=== PATIENT | male | born 1965 | race Caucasian/White ===

== ENCOUNTER 2021-08-15 20:09 | Observation (INO) | payer OTHER, SELFPAY ==
[2021-08-15 20:10] VITALS: BP 147/99; PULSE 91; RESP 14; TEMP 36; O2SAT 93; BMI 38.5
--- NOTE | 2021-08-15 21:50 | RAD_ITS ---
EXAM: XR RIGHT TIBIA AND FIBULA, 2 VIEWS CLINICAL INDICATION: pain TECHNIQUE: Frontal and lateral views of the right tibia and fibula. This report was created using [employer] report generation technology. COMPARISON: None. FINDINGS: See Impression. RAD/Tibia & Fibula 2 Views IMPRESSION: 1. Acute oblique fracture involving the distal shaft of the tibia with lateral displacement of the distal component by 1 shaft width. Mildly comminuted acute fracture involving the distal shaft of the fibula at the metadiaphyseal level. 2. Adjacent soft tissue swelling. 3. No other acute or healing fracture or malalignment. Electronically Signed: Orlando Pathak MD at 22:53 EST Tel , Service support ,
--- NOTE | 2021-08-15 21:50 | RAD_ITS ---
EXAM: XR RIGHT ANKLE COMPLETE, 3 OR MORE VIEWS CLINICAL INDICATION: pain TECHNIQUE: Frontal, lateral and oblique views of the right ankle. This report was created using [employer] report [employer]ARD[employer] technology. COMPARISON: None. FINDINGS: BONES/JOINTS: Slight widening of the medial ankle mortise compared to the lateral ankle mortise. Correlate for any clinical evidence of extensive associated ligamentous instability. Other than fractures of the distal fibula shaft and distal tibia shaft, there are no other fractures involving the ankle or visualized foot. Prominent os trigonum. Preservation of the joint space. No sclerotic or destructive changes observed. SOFT TISSUES: Soft tissue swelling along the lateral distal extremity/ankle and anterior tibiotalar joint. No radiopaque foreign body. RAD/Ankle 2 Views IMPRESSION: 1. Slight widening of the medial ankle mortise compared to the lateral ankle mortise. Correlate for any clinical evidence of extensive associated ligamentous instability. 2. Other than fractures of the distal fibula shaft and distal tibia shaft, there are no other fractures involving the ankle or visualized foot. Electronically Signed: Orlando Pathak MD at 22:37 EST Tel , Service support ,
--- NOTE | 2021-08-15 23:33 | EKG12_ITS ---
Test Reason : DYSRHYTHMIA Blood Pressure : / mmHG Vent. Rate : 090 BPM Atrial Rate : 090 BPM P-R Int : 120 ms QRS Dur : 082 ms QT Int : 372 ms P-R-T Axes : 075 053 057 degrees QTc Int : 455 ms Normal sinus rhythm Nonspecific T wave abnormality Abnormal ECG Confirmed by JENNIFER ROGEL, MAURICE ([id number]), editor publications LOTTIE MANCIA ([id number]) on 08/21/2021 12:06:21 PM Referred By: JENA Confirmed By:MAURICE RODRIGUEZ MD
--- NOTE | 2021-08-15 23:39 | CT_ITS ---
EXAM: CT RIGHT LOWER EXTREMITY WITHOUT INTRAVENOUS CONTRAST CLINICAL INDICATION: fracture TECHNIQUE: Helically acquired images were obtained of the right lower extremity without intravenous contrast. 2-D reformats were performed by the technologist. CTDIvol = ( 15.35 ) mGy, DLP = ( 353.76 ) mGycm This CT exam was performed using one or more of the following dose reduction techniques: automated exposure control, adjustment of the mA and/or kV according to patient size, and/or use of iterative reconstruction technique. This report was created using [employer] report [employer] technology. COMPARISON: 08/16/2021 left ankle radiography. FINDINGS: BONES/JOINTS: Known acute comminuted fracture involving the distal fibula centered at the metadiaphysis level. Known acute involving the distal shaft of the tibia with mild lateral displacement by one shaft width of the distal component. Subtle nondisplaced fracture involving the lateral corner of the distal tibia adjacent to the fibula fracture. At least moderate tibiotalar joint effusion. Ankle mortise is intact. Ankle tendons are intact. No sclerotic or destructive changes. SOFT TISSUES: Diffuse subcutaneous edema about the ankle and foot. No organized collections. CT/Extremity Lower without Contra IMPRESSION: 1. Acute fractures of the distal tibia and fibula. 2. Moderate tibiotalar joint effusion. Electronically Signed: Orlando Pathak MD at 1:33 EST Tel , Service support ,
[2021-08-15 23:41] VITALS: BP 140/90; PULSE 91; RESP 18; TEMP 37.2; O2SAT 96
[2021-08-16] VITALS (12 sets, daily range): BP systolic 120–148; BP diastolic 71–101; PULSE 52–106; RESP 16–18; TEMP 36.2–37.6; O2SAT 94–100; BMI 17.9
--- NOTE | 2021-08-16 00:03 | RAD_ITS ---
EXAM: XR CHEST, 1 VIEW CLINICAL INDICATION: preop clearance TECHNIQUE: Frontal view of the chest. This report was created using [employer] report generation technology. COMPARISON: None. FINDINGS: LUNGS AND PLEURAL SPACES: Suggestive diffuse emphysema. Small calcific densities project over the left upper lobe. This may represent old granulosus disease. No consolidation or edema. No pneumothorax. No effusion. HEART: Unremarkable. Cardiac silhouette not enlarged. MEDIASTINUM: Central airways and mediastinal contour are unremarkable. BONES/JOINTS: Degenerative changes of the spine. SOFT TISSUES: Unremarkable. RAD/Chest 1 View (Portable) IMPRESSION: No acute findings in the chest. Electronically Signed: Orlando Pathak MD at 1:12 EST Tel , Service support ,
[2021-08-16] MEDS: Ondansetron 4 MG/2 ML Vial IV (00:06)
[2021-08-16] MEDS: Morphine 4 MG/ML Syringe IV (00:07)
[2021-08-16 00:20] LABS: Absolute Lymphocyte Count 1.53 X10^3/uL (0.83-4.51); Absolute Neutrophil Count 9.6 X10^3/uL (2.0-7.7); Basophil# 0.08 X10^3/uL; Basophil% 0.7 % (0-1); Eosinophil# 0.01 X10^3/uL; Eosinophils% 0.1 % (0-5); Hematocrit 37.8 % (40-54); Hemoglobin 13.3 g/dL (13.0-16.5); Lymphocyte # 1.53 X10^3/ul (0.83-4.51); Lymphocyte % 13.1 % (19-41); Mean Corp Hgb Conc 35.2 g/dL (32-36); Mean Corpuscular Hgb 34.3 pg (27.0-32.0); Mean Corpuscular Volume 97.4 fL (80-94); Mean Platelet Vol. 9.4 fl (6.2-12.0); Monocyte# 0.42 X10^3/uL; Monocyte% 3.6 % (0-10); NRBC Flagged by Analyzer 0 % (0-5); Neutrophil # 9.59 X10^3/uL (2.7-7.7); Neutrophil % 81.9 % (47-70); Platelet Count 258 K/mm3 (150-450); RBC Distribution Width CV 12.6 % (11.6-14.6); RBC Distribution Width SD 45.1 fl (35.1-43.9); Red Blood Count 3.88 M/mm3 (4.6-6.2); White Blood Count 11.7 K/mm3 (4.4-11.0)
--- NOTE | 2021-08-16 00:38 | ED.VIS.LOWEX ---
HPI History of Present Illness Chief Complaint: Lower Extremity Injury Informant: patient Narrative Narrative: Patient said that he missed stepped on the steps of his porch. He was a little wet. He slipped. He states he just fell and landed right on his right lower extremity. He did not hurt anything else. He cannot bear weight on it. He denies pain at the hips back neck. He never hit his head. Staying still makes it quite a bit better. Motion makes it worse. He states it does not hurt that bad if he stays still. Patient denies medical conditions No medications No allergies No recent surgeries Lives independently, is a regular smoker. PFS PFS Medical History no medical history Home Medications NK 08/15/21 [History Last Taken Unknown] Allergy/AdvReac Type Severity Reaction Status Date / Time No Known Allergies Allergy Verified 08/15/21 20:10 Social History Smoking Status: Current every day smoker tobacco type: cigarettes ROS ROS ED Constitutional Constitutional ED: Denies fever(s) Eyes Eyes: Denies blurry vision ENT ENT ED: Denies rhinorrhea Cardiovascular Cardiovascular: Denies chest pain or palpitations Respiratory/Chest Respiratory/Chest: Denies cough or dyspnea Gastrointestinal Gastrointestinal: Denies abdominal pain, nausea or vomiting Genitourinary Genitourinary ED: Denies dysuria Musculoskeletal Musculoskeletal: Reports other Details: See history of present illness. ; Denies back pain or neck pain Integumentary Denies Abrasions or rash Neurologic Neurologic: Denies paresthesias or weakness Endocrine Endocrinology: Denies polydipsia or polyuria Hematologic/Lymphatic Hematologic/Lymphatic: Denies easy bleeding or easy bruising Allergic/Immunologic Allergic/Immunologic ED: Denies urticaria EXAM Physical Exam Const Vital Signs: 08/15/21 20:10 Temperature 96.8 F L Temperature Source Temporal Pulse Rate 91 Respiratory Rate 14 Blood Pressure 147/99 H Blood Pressure Mean 115 Pulse Ox 93 Oxygen Delivery Method Room Air Patient looks like he may have a fracture. But he states he is very comfortable just lying in bed as long as he does not move it. He did not want anything for pain at first. Positive well nourished and well developed General Appearance ED: well developed and NAD HEENT normocephalic and atraumatic; Negative for tenderness Neck full ROM Thyroid: Negative for tender Chest Wall inspection of chest normal and palpation of chest normal Resp normal respiratory effort and clear to auscultation bilaterally Auscultation: Negative for rales, rhonchi or wheezes Cardio regular rate and regular rhythm GI non-tender and non-distended Palpation: soft Back/Spine no CVA tenderness Cervical Spine: Negative for cervical spine tenderness Thoracic Spine / Upper Back: Negative for thoracic spinal tenderness Lumbar Spine / Lower Back: Negative for lumbar spinal tenderness Extremity Extremity Narrative: Patient does have some swelling in the distal third of the tib-fib area on the right. Pulses are intact. He wiggles toes well. Sensation is intact. There does appear to be slight rotation externally. Neuro oriented x3 Sensorium / Orientation: alert; Negative for confused, lethargic or stuporous Psych mental status grossly normal Skin Skin Narrative: No laceration or puncture. Lesions: no lesions Rashes: no rashes MDM MDM MDM Narrative Medical decision making narrative: X-ray of his tib-fib and ankle show oblique fracture of the distal shaft of the tibia with fracture and fragment involving the fibula. No obvious fracture of the ankle. I discussed the case with Dr. Ortiz on for orthopedics. Plan will be admit to the hospital. He requested CT scan of the ankle. This is pending. I also have initiated work-up to allow clearance for surgery. EKG shows no acute process. CBC is normal. We are pending electrolytes at this time. Procedure: Splint right lower extremity: I discussed risk benefits and options of the patient. We placed him in a 5 inch posterior short leg splint and then a 4 inch sugar tong around his right lower extremity. He had good motion of the toes sensation and capillary refill when rechecked afterwards. This did help his pain. I explained that he will be admitted, he is n.p.o. and this should be fixed hopefully tomorrow Lab Data Attestation: I reviewed the patient's lab results. Labs: Laboratory Results - last 24 hr 08/16/21 00:10 WBC 11.7 H RBC 3.88 L Hgb 13.3 Hct 37.8 L MCV 97.4 H MCH 34.3 H MCHC 35.2 RDW Std Deviation 45.1 H RDW Coeff of [place] 12.6 Plt Count 258 MPV 9.4 Immature Gran % (Auto) 0.600 Neut % (Auto) 81.9 H Lymph % (Auto) 13.1 L [place] % (Auto) 3.6 Eos % (Auto) 0.1 Baso % (Auto) 0.7 Absolute Neuts (auto) 9.6 H Absolute Lymphs (auto) 1.53 Nucleated RBC % 0 Radiography Diagnostic Testing: Clinical Impression(s) from Imaging Studies Ankle X-Ray 08/15/21 21:50 IMPRESSION: 1. Slight widening of the medial ankle mortise compared to the lateral ankle mortise. Correlate for any clinical evidence of extensive associated ligamentous instability. 2. Other than fractures of the distal fibula shaft and distal tibia shaft, there are no other fractures involving the ankle or visualized foot. Electronically Signed: Orlando Pathak MD at 22:37 EST Tel , Service support , Tibia/Fibula X-Ray 08/15/21 21:50 IMPRESSION: 1. Acute oblique fracture involving the distal shaft of the tibia with lateral displacement of the distal component by 1 shaft width. Mildly comminuted acute fracture involving the distal shaft of the fibula at the metadiaphyseal level. 2. Adjacent soft tissue swelling. 3. No other acute or healing fracture or malalignment. Electronically Signed: Orlando Pathak MD at 22:53 EST Tel , Service support , EKG Initial EKG: Comments: EKG done as part of medical clearance read by me shows a normal sinus rhythm with a rate of 90. No ectopy. Mild nonspecific ST and T wave changes diffusely but no acute ST elevation or depression consistent with infarct or ischemia. AL interval, QRS duration and QTc are normal. Discharge Plan Dx/Rx/DC Orders Clinical Impression: Accidental fall on or from other stairs or steps, Closed fracture of right fibula and tibia Disposition Disposition: Acute Care [facility]
[2021-08-16 00:41] LABS: Anion Gap 8 (5-15); BUN 13 mg/dL (7-18); BUN/Creat Ratio 12.6 RATIO (10-20); Calcium,Total 8.5 mg/dL (8.5-10.1); Chloride 104 mmol/L (98-107); Creatinine, Serum 1.03 mg/dL (0.70-1.30); EST Glomerular Filtration Rate 79 mL/min (>60); Est Glom Filt Rate - Afr Amer 96 mL/min (>60); Estimated Creatinine Clearance 76.55 ml/min; Glucose 127 mg/dL (74-106); Potassium 3.9 mmol/L (3.5-5.1); Sodium Level 138 mmol/L (136-145)
[2021-08-16] MEDS: Lactated Ringers 1,000 ML 125 ML IV ×4 (02:27→18:08)
[2021-08-16] MEDS: 0.9% Saline Lock 10 ML Syringe IV (02:27)
[2021-08-16] MEDS: oxyCODONE 5 MG Tablet 10 MG PO ×2 (02:35→06:53)
--- NOTE | 2021-08-16 04:15 | PCS.PANDOC ---
PANDEMIC DOCUMENTATION INITIATED: Date: 08/16/21 Time:0100
--- NOTE | 2021-08-16 07:27 | PCM.HP.STD ---
HPI - General General Date of Admission: 08/16/21 HPI Narrative XIN DIA, is a 56 M who presented to [facility] emergency department via squad last evening 08/15/21. Patient fell down approximately 7 stairs while he was barbecuing in his backyard going down the steps off the deck. He believes the steps were wet causing him to slip. He says he tumbled down the stairs and at some point injured his right leg. He noted a gross deformity and inability to ambulate. EMS was called. X-rays were then obtained in the emergency department demonstrated a distal third tib-fib fracture with questionable involvement of the ankle. I was contacted from the emergency department and recommended a CT scan of the right ankle which was obtained. I then subsequently admitted the patient to my service. He was placed in a short leg splint by the emergency room physician. He states this morning that his pain is well controlled if he just does not move, states it slightly increased from last night, but appears comfortable. Denies other associated injury. Reports a mild headache but no dizziness. Denies fevers, chills, nausea or vomiting, chest pain or shortness of breath. Denies antecedent pain in the right lower leg or ankle. Denies any medical problems and does not take medication on a daily basis. He does admit he has not seen a family physician in decades. He states last time he saw was for a broken clavicle which was treated nonoperatively. [facility] Medical History no medical history Home Medications NK 08/15/21 [History Last Taken Unknown] Allergy/AdvReac Type Severity Reaction Status Date / Time No Known Allergies Allergy Verified 08/15/21 20:10 Social History Smoking Status: Current every day smoker tobacco type: cigarettes ROS ROS Narrative 12 point review of systems obtained, negative unless otherwise noted in HPI. Vital Signs Vital Signs Vital Signs: 08/15/21 20:10 08/15/21 23:41 08/16/21 01:49 Temperature 96.8 F L 98.9 F 98.9 F Temperature Source Temporal Temporal Oral Pulse Rate 91 91 95 Respiratory Rate 14 18 18 Respiratory Effort Respiratory Depth Respiratory Pattern Blood Pressure 147/99 H 140/90 H 144/94 H Blood Pressure Mean 115 106 110 Blood Pressure Source Monitor Blood Pressure Position Supine Blood Pressure Location Right Arm Pulse Ox 93 96 100 Oxygen Delivery Method Room Air Room Air Room Air 08/16/21 02:14 08/16/21 06:18 Temperature 98.4 F Temperature Source Oral Pulse Rate 85 Respiratory Rate 18 Respiratory Effort Normal Non-Labored Respiratory Depth Normal Respiratory Pattern Normal Blood Pressure 148/101 H Blood Pressure Mean 116 Blood Pressure Source Monitor Blood Pressure Position Supine Blood Pressure Location Right Arm Pulse Ox 98 Oxygen Delivery Method Room Air Room Air Weight Weight: 118 lb 2.684 oz Body Mass Index (BMI) 17.9 Physical Exam Narrative General -A&Ox3, NAD, appears stated age. Vital signs stable, afebrile. Respiratory -normal work of breathing, no intercostal retractions. CV -pulses regular, brisk capillary refill ?4 limbs. Abdomen-soft, nontender, nondistended. No guarding, rigidity, rebound tenderness. Musculoskeletal/neurologic -full range of motion nontender throughout bilateral upper extremities, left lower extremity with full sensation and strength in all dermatomes and myotomes. No midline cervical tenderness. Right lower extremity-no pain with logroll of the right hip. Nontender about the thigh and knee. There is a short leg splint in place. Splint is clean dry and intact. The foot appears externally rotated slightly with reference to the patella. Patient does wiggle his toes on command. He has no pain with passive stretch of the toes. The anterior compartment appears soft through the splint. Sensation intact to light touch about the exposed toes. Brisk capillary refill in the toes. Results Lab / Micro Data Result Diagrams: 08/16/21 00:10 08/16/21 00:10 Labs: Laboratory Results - last 24 hr 08/16/21 00:10: WBC 11.7 H, RBC 3.88 L, Hgb 13.3, Hct 37.8 L, MCV 97.4 H, MCH 34.3 H, MCHC 35.2, RDW Std Deviation 45.1 H, RDW Coeff of [place] 12.6, Plt Count 258, MPV 9.4, Immature Gran % (Auto) 0.600, Neut % (Auto) 81.9 H, Lymph % (Auto) 13.1 L, [place] % (Auto) 3.6, Eos % (Auto) 0.1, Baso % (Auto) 0.7, Absolute Neuts (auto) 9.6 H, Absolute Lymphs (auto) 1.53, Nucleated RBC % 0 08/16/21 00:10: Sodium 138, Potassium 3.9, Chloride 104, Carbon Dioxide 26.0, Anion Gap 8, BUN 13, Creatinine 1.03, Estim Creat Clear Calc 76.55, Est GFR (MDRD) Af Amer 96, Est GFR (MDRD) Non-Af 79, BUN/Creatinine Ratio 12.6, Glucose 127 H, Calcium 8.5 Micro: Microbiology 08/15/21 23:50 Nasal Secretion SARS-CoV-2 Antigen (Rapid) - Final Radiology Impression Ankle X-Ray 08/15/21 21:50 IMPRESSION: 1. Slight widening of the medial ankle mortise compared to the lateral ankle mortise. Correlate for any clinical evidence of extensive associated ligamentous instability. 2. Other than fractures of the distal fibula shaft and distal tibia shaft, there are no other fractures involving the ankle or visualized foot. Electronically Signed: Orlando Pathak MD at 22:37 EST Tel , Service support , Tibia/Fibula X-Ray 08/15/21 21:50 IMPRESSION: 1. Acute oblique fracture involving the distal shaft of the tibia with lateral displacement of the distal component by 1 shaft width. Mildly comminuted acute fracture involving the distal shaft of the fibula at the metadiaphyseal level. 2. Adjacent soft tissue swelling. 3. No other acute or healing fracture or malalignment. Electronically Signed: Orlando Pathak MD at 22:53 EST Tel , Service support , Lower Extremity CT 08/15/21 23:39 IMPRESSION: 1. Acute fractures of the distal tibia and fibula. 2. Moderate tibiotalar joint effusion. Electronically Signed: Orlando Pathak MD at 1:33 EST Tel , Service support , Chest X-Ray 08/16/21 00:03 IMPRESSION: No acute findings in the chest. Electronically Signed: Orlando Pathak MD at 1:12 EST Tel , Service support , Assessment & Plan Assessment/Plan (1) Closed fracture of right fibula and tibia: QUALIFIERS: Encounter type: initial encounter Qualified Code(s): S82.201A - Unspecified fracture of shaft of right tibia, initial encounter for closed fracture; S82.401A - Unspecified fracture of shaft of right fibula, initial encounter for closed fracture PLAN: see below (2) Bimalleolar fracture of right ankle: QUALIFIERS: Encounter type: initial encounter Fracture type: closed Qualified Code(s): S82.841A - Displaced bimalleolar fracture of right lower leg, initial encounter for closed fracture PLAN: Patient seen and examined. He appears to have a closed, neurovascular intact, isolated injury to his right lower leg. There is a spiral fracture about the distal tibia. The fracture spirals down to the tibial plafond where there is a nondisplaced posterior malleolus fracture. There is also a distal fibula fracture just above the syndesmosis. There appears to be some medial clear space widening on his ankle. This is suggestive of an unstable ankle injury as well. Thus, I recommended surgical intervention in the form of right tibia intramedullary nailing, open reduction internal fixation right ankle. I explained the injury and procedure to the patient at length. The risks, benefits, alternatives to the procedure reviewed with the patient at length and he agreed to proceed. Risks include but are not limited to bleeding, infection, loss of life or limb, need for additional surgery, persistent pain, prolonged nonweightbearing, nonunion or malunion, wound complications, neurovascular injury, DVT or PE. Patient expressed understanding of these risks and wished to proceed with surgery. -N.p.o., maintenance IV fluids, 2 g Ancef on-call the OR -Type and screen -PT/OT following surgery -Plan for surgery later on this morning.
[2021-08-16 08:51] LABS: Absolute Lymphocyte Count 2.88 X10^3/uL (0.83-4.51); Absolute Neutrophil Count 7.1 X10^3/uL (2.0-7.7); Basophil# 0.05 X10^3/uL; Basophil% 0.5 % (0-1); Eosinophil# 0.05 X10^3/uL; Eosinophils% 0.5 % (0-5); Hematocrit 35.7 % (40-54); Hemoglobin 11.9 g/dL (13.0-16.5); Lymphocyte # 2.88 X10^3/ul (0.83-4.51); Lymphocyte % 25.9 % (19-41); Mean Corp Hgb Conc 33.3 g/dL (32-36); Mean Corpuscular Hgb 33.1 pg (27.0-32.0); Mean Corpuscular Volume 99.4 fL (80-94); Mean Platelet Vol. 9.5 fl (6.2-12.0); Monocyte# 0.99 X10^3/uL; Monocyte% 8.9 % (0-10); NRBC Flagged by Analyzer 0 % (0-5); Neutrophil # 7.08 X10^3/uL (2.7-7.7); Neutrophil % 63.7 % (47-70); Platelet Count 229 K/mm3 (150-450); RBC Distribution Width CV 12.7 % (11.6-14.6); RBC Distribution Width SD 46.1 fl (35.1-43.9); Red Blood Count 3.59 M/mm3 (4.6-6.2); White Blood Count 11.1 K/mm3 (4.4-11.0)
--- NOTE | 2021-08-16 09:48 | NURSING ---
pt to surgery
--- NOTE | 2021-08-16 10:16 | EKG12_ITS ---
Test Reason : POST OP Blood Pressure : / mmHG Vent. Rate : 087 BPM Atrial Rate : 087 BPM P-R Int : 118 ms QRS Dur : 084 ms QT Int : 382 ms P-R-T Axes : 066 001 049 degrees QTc Int : 459 ms Normal sinus rhythm with sinus arrhythmia Low voltage QRS (Limb Leads) Confirmed by FAUZIA ROGEL, FERNANDO ([id number]), telegraph editor JEANNETTE HOLLINS ([id number]) on 08/29/2021 8:28:27 AM Referred By: SHEEBA Confirmed By:FERNANDO CAGE MD
--- NOTE | 2021-08-16 10:30 | OP.PCM_ITS ---
Report of Operation Date of Procedure: 08/16/21 Description of Surgical Findings:: Preoperative diagnosis: 1. Right closed distal third tibial shaft fracture 2. Right closed ankle bimalleolar fracture Postoperative diagnosis: 1. Right closed distal third tibial shaft fracture 2. Right closed ankle bimalleolar fracture Procedure: 1. Suprapatellar intramedullary nail fixation of right tibial shaft fracture 2. Open reduction internal fixation right lateral malleolus and posterior malleolus fracture right ankle Surgeon: Yonathan Ortiz DO [employer] Specialist: Juliane Andersen SA Anesthesia: General LMA Anesthesiologist: Dr. De La Torre Complications: None Drains: None Estimated blood loss: 150 cc Urinary output: None IV fluids: Per anesthesia record Specimens: None Surgical implants: Myron T2 alpha tibial system tibial nail 10 mm x 345 mm Myron intramedullary nail 5 mm interlocking screws x4-length 35 mm, 45 mm, 65 mm, 50 mm Myron 4.0 mm partially-threaded cannulated cancellous screw x2 Myron VariAx lateral fibula locking plate 7 hole Indications: This is a 56 M who presented to [facility] emergency department via squad last evening 08/15/21. Patient fell down approximately 7 stairs while he was barbecuing in his backyard going down the steps off the deck. He believes the steps were wet causing him to slip. He says he tumbled down the stairs and at some point injured his right leg. He noted a gross deformity and inability to ambulate. EMS was called. X-rays were then obtained in the emergency department demonstrated a distal third tib-fib fracture with questionable involvement of the ankle. I was contacted from the emergency department and recommended a CT scan of the right ankle which was obtained. I then subsequently admitted the patient to my service. He was placed in a short leg splint by the emergency room physician. He was neurovascularly intact. Due to the distal third nature, a CT scan was performed to rule out occult posterior malleolus fracture. CT of the ankle was demonstrated a nondisplaced posterior malleolus fracture. There also appeared to be some medial clear space widening of the ankle. Given the nature of the injury, I recommended surgical fixation in the form of suprapatellar intramedullary nailing of the right tibia and open reduction internal fixation of the right lateral and posterior malleoli. I reviewed the procedure with the patient. We discussed the risks, benefits, alternatives to procedure. Risks include but were not limited to bleeding, infection, loss of life or limb, risk of anesthesia, persistent pain, compartment syndrome, malunion, nonunion, need for additional surgery, persistent limp or disability after surgery, failure mechanical orthopedic device. Informed consent was obtained he agreed to proceed. Description of procedure: Description of procedure Prior to his procedure, he was brought to the preoperative holding area. Identified the patient by his name, medical record number, and date of . The operative extremity was marked. Informed consent was again confirmed with the patient and all questions answered were to the patient satisfaction. Patient was also seen by the anesthesia staff prior to the procedure. At time of his procedure he was brought to the operative suite and positioned supine a standard operating table. General esthesia was induced in order to mask airway placed. After adequate anesthesia, we prepared the right lower extremity for surgery. We placed a bump under the patient's right hip. Bath blankets were used to elevate the right lower extremity in a ramped type fashion and secured with tape. The splint was then removed, hair was clipped and a trauma scrub performed. We then prepped the right lower extremity in a normal, sterile orthopedic fashion with ChloraPrep. We then performed a timeout with all parties in attendance in agreement with the side, site, operation to be performed. 2 g of Ancef was administered prior to incision by the anesthesia staff. No concerns are voiced and we elected to proceed at this time. A well-padded pneumatic tourniquet was applied to the patient's right upper thigh prior to prepping and draping. The right lower extremity was exsanguinated Esmarch bandage and inflated to 280 mmHg. The tourniquet was deflated prior to intramedullary nailing and reaming. I first placed the 2 anterior to posterior partially-threaded cannulated 4.0 millimeters screws to capture the posterior malleolus. I placed these medial and lateral respectively to my planned intramedullary nail. Stab incisions were made after marking the skin. K wires were then passed bicortically anterior to posterior. Depth gauge was used to measure the length of the screw. I then placed both screws to appropriate depth. I then turned my attention to the lateral malleolus. A standard direct lateral approach was made over the line the distal fibular shaft and lateral malleolus. Skin was sharply incised with 15 blade scalpel. The superficial peroneal nerve was not identified throughout the dissection. There was significant fracture hematoma and periosteal stripping about the fracture. There was a large butterfly fragment of the anterior cortex of the fibula noted. I had my food service assistant pulled traction and we were able to achieve appropriate length of the fibula. I placed a reduction clamp around the fibula and confirmed on fluoroscopy appropriate fibular length. This significantly reduced the tibia as well. I then selected a lateral locking plate and bridge fashion as was unable to clamp the butterfly fragment and elected to use the plate and bridge mode. I secured the plate to bone with cortical screws proximal and distal to the fracture site. Before placing final locking screws in the distal cluster, I turned my attention to the tibia. I was able to place a percutaneous clamp arou nd the fracture site anteriorly and was able to palpate the distal tibia fracture site through the deep posterior compartment where I passed the other namita of the large pointed reduction clamp. I achieved a near perfect reduction of the fracture of the tibia. I then turned my attention to the knee to prepare for intramedullary fixation. A suprapatellar approach was utilized. Approximately 1 fingerbreadth above the superior pole the patella in the midportion of the quadriceps tendon and approximately 2 cm incision was made sharply through skin, subcutaneous tissue and through the quad tendon into the knee joint. Digital blunt dissection was used to ensure we had gained access to the knee joint. Blunt tipped guide was used then to traverse the patellofemoral joint and gain access to our entry point. A starting pin was placed through the center portion of the guide. We chose our starting point just medial to the lateral tibial eminence on a perfect AP and just anterior to the articular surface on the lateral projection of the knee. The pin was driven bicortically and secured. We then remove the center portion of the soft tissue guide. The opening reamer was used to gain access to the intramedullary canal. Opening reamer was then removed as well as starting pin. A ball-tipped guidewire was then inserted through the soft tissue guide with a gentle bend at the end for manipulation. We passed the ball-tipped guidewire through the intramedullary canal, ensuring maintained reduction. We then carefully rotated the wire to achieve center center position at the ankle on both AP and lateral projections. A depth gauge was utilized to measure the length of the nail, selecting a 345 mm length nail. After we were content with position of our ball-tipped guidewire, we then sequentially reamed using flexible reamers to a final diameter of 11 mm. Reamers were removed. Intramedullary nail was opened and prepared on the back table. Nail was placed over top of the ball-tipped guidewire and impacted to an appropriate depth. Reduction was near-anatomic after impaction, slight distraction was noted. Ball-tipped guidewire was removed. We then placed our interlocking screws distally first to allow for backslapping. I then placed 2 medial to lateral distal interlocking screws using perfect [place] technique. Skin was first marked, incised with 15 blade scalpel, and spread down to bone utilizing hemostat. These were drilled bicortically, measured with a depth gauge, and tightened using fluoroscopic assistance. We then assembled the back slap attachment to the impactor of the nail. Backslapping was performed under fluoroscopic imaging. There was significant compression across the fracture site, achieving a more anatomic alignment. We then placed 2 interlocking screws in the proximal portion of the nail utilizing the targeting guide. Skin was sharply incised with 15 blade scalpel, spread with hemostat. We drilled bicortically, measuring off the drill, and placed to appropriately sized proximal interlocking screws. Position and size were confirmed on fluoroscopy. Insertion handle and jig were then removed. Final fluoroscopic images revealed a well reduced fracture and appropriately positioned hardware. Stab incisions were closed with 2-0 Vicryl and cortez. The quadriceps tendon was closed watertight with [id number] #0 Vicryl suture with the dermis closed with interrupted buried 2-0 Vicryl and cortez for skin. The lateral malleolus approach was closed with 2-0 Vicryl buried in the dermis and cortez to reapproximate the skin. Incisions were cleansed and dressed with Xeroform, 4 x 4's, ABDs with abundant heel padding, and Tad wrap's. There were several fracture blisters around the fracture site which were deremoved and dressed with Xeroform. Compartments were soft and compressible after the procedure. A well-padded AO type splint was then placed around the patient's lower leg in maximal dorsiflexion. Patient tolerated the procedure well without complication. He was able to be safely extubated in the operative suite. He was transferred to the PACU in stable condition. Post Operative Plan: We will keep the patient overnight for observation and have him work with physical and occupational therapies. Weightbearing: Nonweightbearing right lower extremity. Range of motion as tolerated right knee Antibiotics: 2 g Ancef administered prior to incision, 1 g Ancef for 23 hours every 8 hours. DVT Prophylaxis: Xarelto to start tomorrow Damian: None Dressing: Maintain, keep clean dry and intact until follow-up. X-Rays: To be obtained in office in 2?3 weeks at follow-up. Pain Medication: Percocet prescription upon discharge. Follow-up: Follow-up with me in 2?3 weeks in the office for wound check, staple removal, and x-rays.
--- NOTE | 2021-08-16 10:33 | CASEMGMT ---
RN CM NOTE: Pt @ OR--unable to complete initial RN CM assessment. CM or SW to try and complete at a later time. Rachelle BSN RN CM
--- NOTE | 2021-08-16 10:50 | RAD_ITS ---
STUDY: X-RAY - RIGHT TIBIA AND FIBULA REASON FOR EXAM: Male, 56 years old. Known fracture TECHNIQUE: 13 Limited intraoperative view(s) of the tibia and fibula were obtained. COMPARISON: None. FINDINGS: 13 Limited intraoperative films were performed as the patient has undergone open reduction internal fixation of distal tibia and fibular fractures. An intramedullary shanell has been placed on the long axis of the tibia anchored with multiple threaded screws. Alignment at the fracture site is anatomic. A metallic side plate is placed along the distal fibula alignment active fracture site is also anatomic. Follow-up recommended to assure complete osseous union RAD/Tibia & Fibula 2 Views IMPRESSION: Status post open reduction internal fixation of known fractures in the distal tibia and fibula. Alignment is anatomic at both fracture sites after reduction. Follow-up recommended to assure complete osseous union Electronically Signed: Keenan Todd MD at 14:43 EST , Service support ,
[2021-08-16] MEDS: traMADol 50 MG Tablet PO (15:23)
--- NOTE | 2021-08-16 17:16 | CASEMGMT ---
SOCIAL WORK Referral Source: CM Reason for Consult: No PCP, no insurance Met with patient and patient's daughter in room. Introduced role and reason for referral. Patient still drowsy from surgery. Daughter states discharge plan is for patient to return home with daughter. Daughter states patient does have a walker available if needed. Patient reports to have insurance through work. Registration updated and will follow up. CM updated on discharge plan. Plan: Home with daughter Sahil Brennan, RESIDENTIAL PROGRAM MANAGER, DISPLAY TRIMMER
[2021-08-16] MEDS: Cefazolin 1 GM/50 ML BAG IV (18:08)
[2021-08-16] MEDS: Acetaminophen 500 MG Tablet 1000 MG PO (21:53)
[2021-08-16] MEDS: Ibuprofen 400 MG Tablet 800 MG PO (21:53)
[2021-08-17] MEDS: traMADol 50 MG Tablet PO ×4 (00:05→17:57)
[2021-08-17] MEDS: Cefazolin 1 GM/50 ML BAG IV (02:17)
[2021-08-17] MEDS: Lactated Ringers 1,000 ML 125 ML IV ×2 (02:20→10:49)
[2021-08-17 03:11] VITALS: BP 108/78; PULSE 97; RESP 18; TEMP 36.7; O2SAT 98
[2021-08-17] MEDS: Acetaminophen 500 MG Tablet 1000 MG PO ×3 (05:12→21:44)
[2021-08-17] MEDS: Ibuprofen 400 MG Tablet 800 MG PO ×2 (05:12→21:44)
[2021-08-17 06:49] VITALS: BP 117/74; PULSE 75; RESP 18; TEMP 36.8; O2SAT 97
[2021-08-17] MEDS: Rivaroxaban 10 MG Tablet PO (06:53)
[2021-08-17 08:40] VITALS: BP 105/71; PULSE 83; RESP 22; TEMP 36.5; O2SAT 98
[2021-08-17] MEDS: oxyCODONE 5 MG Tablet 10 MG PO ×2 (09:54→20:14)
--- NOTE | 2021-08-17 14:07 | PCM.PN.ORT ---
Subjective Subjective Pt S&E. Doing well. States pain well controlled. Denies F/C/N/V/SOB/CP. Up to chair w/ PT/OT. Denies numbness, tingling. Objective Data Objective Data Vital Signs: Vital Signs Temp Pulse Resp BP Pulse Ox 97.7 F L 83 22 H 105/71 98 08/17/21 08:40 08/17/21 08:40 08/17/21 08:40 08/17/21 08:40 08/17/21 08:40 Oxygen Delivery Method Room Air Weight: 118 lb 2.684 oz Body Mass Index (BMI) 17.9 Intake & Output: Intake and Output for Last 24 Hours 08/15/21 08/16/21 08/17/21 23:59 23:59 23:59 Intake Total 3377.92 / 3377.92 / Output Total 300 / 1150 1425 / 1425 Balance 3077.92 / 2227.92 604.17 / 604.17 Lab / Micro Data Result Diagrams: 08/16/21 08:25 08/16/21 00:10 Micro: Microbiology 08/15/21 23:50 Nasal Secretion SARS-CoV-2 Antigen (Rapid) - Final Radiography Diagnostic Testing: Radiology Impression Tibia/Fibula X-Ray 08/16/21 10:50 IMPRESSION: Status post open reduction internal fixation of known fractures in the distal tibia and fibula. Alignment is anatomic at both fracture sites after reduction. Follow-up recommended to assure complete osseous union Electronically Signed: Keenan Todd MD at 14:43 EST , Service support , Physical Exam Narrative Gen - A&Ox3, NAD RLE - Dressing/splint C/D/I. Wiggles toes on command. SILT in toes. BCR. Compartments soft. No pain w/ passive stretch of toes. Assessment & Plan Assessment/Plan (1) Closed fracture of right fibula and tibia: QUALIFIERS: Encounter type: initial encounter Qualified Code(s): S82.201A - Unspecified fracture of shaft of right tibia, initial encounter for closed fracture; S82.401A - Unspecified fracture of shaft of right fibula, initial encounter for closed fracture (2) Bimalleolar fracture of right ankle: QUALIFIERS: Encounter type: initial encounter Fracture type: closed Qualified Code(s): S82.841A - Displaced bimalleolar fracture of right lower leg, initial encounter for closed fracture PLAN: POD#1 s/p R Tibia IMN, ORIF R Ankle - Doing well. Pain controlled. - PT/OT - NWB RLE, ROMAT R knee - Case management consulted. - Finish 23 hrs iv ABx - Xarelto for DVT ppx - Stable for discharge pending progress with therapies. Awaiting follow-up from therapy for [facility] vs SNF recs.
[2021-08-17 14:08] VITALS: BP 118/72; PULSE 81; RESP 18; TEMP 36.2; O2SAT 97
[2021-08-17 20:15] VITALS: BP 142/94; PULSE 94; RESP 16; TEMP 36.9; O2SAT 97
[2021-08-18] MEDS: traMADol 50 MG Tablet PO ×3 (00:40→11:56)
[2021-08-18 02:10] VITALS: BP 116/90; PULSE 87; RESP 16; TEMP 36.6; O2SAT 96
[2021-08-18] MEDS: Acetaminophen 500 MG Tablet 1000 MG PO ×2 (05:07→13:36)
[2021-08-18] MEDS: Ibuprofen 400 MG Tablet 800 MG PO ×2 (05:08→13:36)
[2021-08-18] MEDS: Rivaroxaban 10 MG Tablet PO (05:08)
[2021-08-18 08:54] VITALS: BP 112/81; PULSE 71; RESP 18; TEMP 36.6; O2SAT 97
--- NOTE | 2021-08-18 10:47 | CASEMGMT ---
ALVERTO CLEMENT NOTE: Call received from ALVERTO Castillo. Pt is being discharged home today and pt will need crutches and possibly a walker. Per SW note family reports a walker is available for pt. Anna states pt is checking w/his parents to ensure they do have a walker. RN to give script for walker to pt, if walker is not available. Crutches to be obtained from ED. PT/OT notes have been reviewed. Pt has been educated on crutches and proper technique. ALVERTO CLEMENT also informed Anna, if family does not have a walker available and if pt needs walker before discharge, [facility] can deliver walker to the hospital today before pt goes home. Anna to inform pt, if HHC is desired, to f/u w/his PCP or Ortho MD, as HHC is not able to be arranged on Thursday. Rachelle CABRERA RN, CM
--- NOTE | 2021-08-18 11:29 | PCM.DC.SUM ---
Providers Date of Admission: 08/16/21 Primary Care Physician: No Primary Care Phys Reason For Visit: TIB FIB FRACTURE Diagnosis Discharge Diagnosis (1) Closed fracture of right fibula and tibia: Status: Acute Code(s): S82.201A - Unspecified fracture of shaft of right tibia, initial encounter for closed fracture; S82.401A - Unspecified fracture of shaft of right fibula, initial encounter for closed fracture Qualifiers: Encounter type: initial encounter Qualified Code(s): S82.201A - Unspecified fracture of shaft of right tibia, initial encounter for closed fracture; S82.401A - Unspecified fracture of shaft of right fibula, initial encounter for closed fracture (2) Bimalleolar fracture of right ankle: Status: Acute Code(s): S82.841A - Displaced bimalleolar fracture of right lower leg, initial encounter for closed fracture Qualifiers: Encounter type: initial encounter Fracture type: closed Qualified Code(s): S82.841A - Displaced bimalleolar fracture of right lower leg, initial encounter for closed fracture Medications at Discharge Home Medications aspirin 325 mg PO BID 28 Days #56 tab 08/17/21 ibuprofen 800 mg PO Q8 30 Days #180 tab 08/17/21 oxycodone-acetaminophen [Percocet] 1 tab PO Q4H PRN 7 Days #42 tab 08/17/21 Hospital Course Summary of Care Provided Minutes Spent on Discharge: 15 Hospital Course: Patient sustained a right distal tibial shaft fracture with associated ankle fractures on 08/15/2021. I admitted the patient that evening. He underwent uncomplicated right tibial shaft intramedullary nailing and open reduction internal fixation of his right ankle on 08/16/2021. He was made nonweightbearing to his right lower extremity postop. He worked well with physical and occupational therapies and was able to be discharged to home on postoperative day #2. No medical or surgical complications were encountered throughout his stay. Physical Exam Narrative General - A&Ox3, NAD. VSS/AF Right lower extremity -incisional dressing/splint C/D/I. SILT in exposed toes, wiggles toes on command.BCR. Weight / BMI Weight Weight: 118 lb 2.684 oz Body Mass Index (BMI) 17.9 ABG / Lab / Microbiology Data Result Diagrams: 08/16/21 08:25 08/16/21 00:10 Microbiology: Microbiology 08/15/21 23:50 Nasal Secretion SARS-CoV-2 Antigen (Rapid) - Final Meaningful Use Info Meaningful Use Diagnoses (Choose all that apply): None applicable Discharge Plan Admission Admit Date/Time: 08/16/21 07:52 Attending Provider: Yonathan Ortiz Primary Care Provider: Care Physician,No Primary Instructions Additional Instructions / Restrictions: Maintain splint and dressing to right leg. Keep it clean, dry and intact. Ice and elevate the right leg above the level of the heart. Wiggle toes frequently in the splint. Range of motion as tolerated the right knee. Nonweightbearing right lower extremity. If you attempt to shower, cover the dressing with a waterproof bag. Take medications as prescribed. Discharge Orders/Prescriptions Prescriptions: New ibuprofen 400 mg Tablet 800 mg PO Q8 30 Days Qty: 180 RF: 0 aspirin 325 mg tablet 325 mg PO BID 28 Days Qty: 56 RF: 0 oxycodone-acetaminophen [Percocet] 5-325 mg tablet 1 tab PO Q4H PRN (Reason: pain) 7 Days Qty: 42 RF: 0 Referrals / Follow Up: Yonathan Ortiz DO [STAFF PHYSICIAN] - 09/04/21 Care Physician,No Primary [Primary Care Provider] -
--- NOTE | 2021-08-18 11:32 | PCM.DC ---
Discharge Instructions Follow Up Care Test Results: Test results from this visit will be discussed in further detail at your follow-up appointment, if applicable. Discharge Plan Admission Admit Date/Time: 08/16/21 07:52 Attending Provider: Yonathan Ortiz Primary Care Provider: Care Physician,Tuyet Primary Instructions Additional Instructions / Restrictions: Maintain splint and dressing to right leg. Keep it clean, dry and intact. Ice and elevate the right leg above the level of the heart. Wiggle toes frequently in the splint. Range of motion as tolerated the right knee. Nonweightbearing right lower extremity. If you attempt to shower, cover the dressing with a waterproof bag. Take medications as prescribed. Discharge Orders/Prescriptions Prescriptions: New ibuprofen 400 mg Tablet 800 mg PO Q8 30 Days Qty: 180 RF: 0 aspirin 325 mg tablet 325 mg PO BID 28 Days Qty: 56 RF: 0 oxycodone-acetaminophen [Percocet] 5-325 mg tablet 1 tab PO Q4H PRN (Reason: pain) 7 Days Qty: 42 RF: 0 Referrals / Follow Up: Yonathan Ortiz DO [STAFF PHYSICIAN] - 09/04/21 Care Physician,No Primary [Primary Care Provider] -
[2021-08-18 13:06] VITALS: BP 111/76; PULSE 88; RESP 16; TEMP 36.6; O2SAT 98
== END 2021-08-18 13:45 | disposition home or self-care (01) ==
LOC: ED 08-16 00:42 → MS2 08-16 12:35
PROVIDERS: Anesthesiology; Admitting Provider Student in an Organized Health Care Education/Training Program; Emergency Provider Emergency Medicine; Visit Provider Student in an Organized Health Care Education/Training Program
PROC: (CPT 27756; principal; 2021-08-16 10:00)
DX: S82.841A Displaced bimalleolar fracture of right lower leg, initial encounter for closed fracture (principal); S82.401A Unspecified fracture of shaft of right fibula, initial encounter for closed fracture; S82.391A Other fracture of lower end of right tibia, initial encounter for closed fracture; F17.210 Nicotine dependence, cigarettes, uncomplicated; W10.8XXA Fall (on) (from) other stairs and steps, initial encounter; Y93.G3 Activity, cooking and baking; Y92.018 Other place in single-family (private) house as the place of occurrence of the external cause
CPT/HCPCS: 27756; 27814; 29515; 36415; 71045; 73590; 73600; 73700; 76000; 80048; 85025; 87426; 93005; 96361; 96365; 96366; 96375; 97110; 97116; 97163; 97165; 97530; 97802; 99218; 99251; 99283; 99406; C1713; J7030; J7120; A4216; G0378; G0463; J2405